=== PATIENT | female | born 1955 | race African-American/Black ===

== ENCOUNTER → 2018-04-23 | Outpatient (CLI) | payer OTHER | LOC: COL.VAS 12:14 | DX: M79.89 Other specified soft tissue disorders (principal); M79.605 Pain in left leg ==

== ENCOUNTER → 2018-06-05 | Outpatient (CLI) | payer OTHER | LOC: MC.RAD 15:21 | DX: Z12.31 Encounter for screening mammogram for malignant neoplasm of breast (principal) ==

== ENCOUNTER 2019-01-28 06:19 | Day surgery (SDC) | payer OTHER ==
[~2019-01-28] VITALS: Ht 154.9 cm; Wt 106.5 kg
[2019-01-28] VITALS (28 sets, daily range): BP systolic 85–156; BP diastolic 57–96; PULSE 18–92; TEMP 98
[2019-01-28 07:00] LABS: HEMATOCRIT 46.4 % (37.0-47.0); HEMOGLOBIN 15.1 g/dl (12.5-16.0); MEAN CELL VOLUME 90 fl (80.0-100.0); MEAN CORPUSCULAR HEMOGLOBIN 29 pg (27.0-31.0); MEAN CORPUSCULAR HGB CONC 33 g/dl (33.0-37.0); MEAN PLATELET VOLUME 10.7 fl (7.4-10.4); PLATELET COUNT 307 K/mm3 (130-400); RED BLOOD COUNT 5.17 M/mm3 (4.10-5.30); REDCELL DISTRIBUTION WIDTH-CV 14.7 % (11.5-14.5)
[2019-01-28 07:10] LABS: CALCIUM 9.6 mg/dL (8.4-10.2); CREATININE, serum 0.82 (0.52-1.25); POTASSIUM 4.5 mmol/L (3.4-5.0)
[2019-01-28] MEDS ORDERED: BENICAR 20MG TA20 MG PO (07:10)
[2019-01-28] MEDS ORDERED: ASPIRIN 81M81 MG/TA2 PO (07:11)
[2019-01-28] MEDS ORDERED: CRESTOR20 MG PO (07:11)
[2019-01-28] MEDS ORDERED: COREG 3.123.125 MG/T PO (07:12)
[2019-01-28] MEDS ORDERED: LASIX 40MG TABL40 MG PO (07:13)
[2019-01-28] MEDS ORDERED: TESSALON P100 MG/CAP PO (07:15)
--- NOTE | 2019-01-28 09:10 | NUR ---
SEE MERGE FOR ALL MEDICCATION ADMINISTRATION TIMES, RASS ASSESSMENT DURING AND POST PROCEDURE
[2019-01-28] MEDS ORDERED: COREG12.5 MG PO (10:08)
--- NOTE | 2019-01-28 14:00 | NUR ---
Discharge instructions given to pt.Pt verbalizes understanding.
--- NOTE | 2019-01-28 14:20 | NUR ---
Pt up to bathroom with SBA after 4 hours flat time complete. Bleeding noted from R groin after pt voided bladder. Pt placed supine on bed and manual pressure applied to R groin. PT and DP pulses +1. Pt arlin well.
--- NOTE | 2019-01-28 14:45 | NUR ---
Manual pressure held for 20 minutes and then femstop placed with pressure set at 75 mmHg. Pt reports nausea better. Pt arlin well.
--- NOTE | 2019-01-28 17:13 | NUR ---
Report to Cara Gillette RN who assumed care at this time.
--- NOTE | 2019-01-28 19:06 | NUR ---
Femstop released and discontinued dut to no bleeding to right groin. Gauze and tegaderm applied, scant amount of blood noted. Pt up and ambulated through nurses station to restroom, no bleeding noted.
--- NOTE | 2019-01-28 19:15 | NUR ---
Ambulated back to room with steady gait. No bleeding noted. Guadalupe RN from ICU also accessed groin site and dressing and agreed it feels and looks good with no bleeding. INT discontinued intact. Went back over some of the discharge highlights.
--- NOTE | 2019-01-28 19:20 | NUR ---
Dr. Ruelas came through unit and this nurse updated on the pt. He agreed to discharge.
--- NOTE | 2019-01-28 19:34 | NUR ---
Transferred to private car by .
== END 2019-01-28 19:35 | disposition home or self-care (01) ==
LOC: COL.CAR 06:19
PROVIDERS: Internal Medicine Cardiovascular Disease
DX: I42.0 Dilated cardiomyopathy (principal); I10 Essential (primary) hypertension; E78.5 Hyperlipidemia, unspecified; E66.9 Obesity, unspecified; E66.09 Other obesity due to excess calories; Z68.41 Body mass index [BMI] 40.0-44.9, adult; M10.9 Gout, unspecified; L68.0 Hirsutism; Z87.891 Personal history of nicotine dependence; E78.00 Pure hypercholesterolemia, unspecified; D18.09 Hemangioma of other sites; Z90.49 Acquired absence of other specified parts of digestive tract; Z88.5 Allergy status to narcotic agent; Z88.8 Allergy status to other drugs, medicaments and biological substances; Z80.9 Family history of malignant neoplasm, unspecified; Z83.3 Family history of diabetes mellitus; E78.2 Mixed hyperlipidemia
CPT/HCPCS: J1644; J2250; J3010; Q9967

== ENCOUNTER → 2021-07-04 | Outpatient (CLI) | payer OTHER ==
[~2021-07-04] MED LIST: ASPIRIN 81M81 MG/TA2 PO; BENICAR 20MG TA20 MG PO; COREG 3.123.125 MG/T PO; COREG12.5 MG PO; CRESTOR20 MG PO; LASIX 40MG TABL40 MG PO; TESSALON P100 MG/CAP PO
== END ==
LOC: MC.RAD 06-29 14:30
DX: Z12.31 Encounter for screening mammogram for malignant neoplasm of breast (principal)

== ENCOUNTER → 2023-12-19 | Outpatient (CLI) | payer OTHER | LOC: MC.RAD 13:09 | DX: Z12.31 Encounter for screening mammogram for malignant neoplasm of breast (principal) ==